=== PATIENT | female | born 1990 | race Caucasian/White ===

== ENCOUNTER 2016-10-24 15:09 | Emergency (ER) | payer OTHER ==
[~2016-10-24] VITALS: Ht 165.1 cm; Wt 58.0 kg
[2016-10-24 15:11] VITALS: Ht 165.1 cm; Wt 58.0 kg
[2016-10-24] MEDS ORDERED: HYDR-902 PO (16:14)
--- NOTE | 2016-10-24 16:17 | ERD ---
ER Documentation Chief Complaint Date/Time DATE: 10/24/16 TIME: 16:15 Chief Complaint 9/10 pelvic pain x today HPI This is a 26-year-old female who is here for pelvic pain. The patient took Plan B 2 weeks ago and she is currently having some pain on her day 1 of her menstrual cycle today. She complains of typical pain she usually has but is much worse with some pelvic cramping is been off-and-on with heavy bleeding which is typical for her. No vomiting no back pain no dysuria. She says her pain is much better now than it was this morning ROS All systems reviewed and are negative except as per history of present illness. Medications Home Meds Active Scripts Hydrocodone/Acetaminophen ([place] 10-325 Tablet) 1 Each Tablet, 1 TAB PO Q6H Y for PAIN, #20 TAB Prov:DAVIN FOX DO 10/24/16 Allergies Allergies: Coded Allergies: No Known Allergy (Unverified , 10/24/16) PMhx/Soc Medical and Surgical Hx: pt denies Medical Hx, pt denies Surgical Hx FmHx Family History: No coronary disease Physical Exam Vitals Vital Signs Date Time Temp Pulse Resp B/P Pulse Ox O2 Delivery O2 Flow Rate FiO2 10/24/16 15:11 97.8 82 16 128/76 99 Physical Exam Const: Well-developed, well-nourished Head: Atraumatic, normocephalic Eyes: Normal Conjunctiva, PERRLA, EOMI, normal sclera, no nystagmus ENT: Normal External Ears, Nose and Mouth, moist mucus membranes. Neck: Full range of motion. No meningismus, no lymphadenopathy. Resp: Clear to auscultation bilaterally, no wheezing, rhonchi, rales Cardio: Regular rate and rhythm, no murmurs, S1 S2 present Abd: Soft, diffuse mild tenderness in the pelvis, non distended. Normal bowel sounds, no guarding or rebound, no pulsitile abdominal masses or bruits Skin: No petechiae or rashes, no ecchymosis , no maculopapular rash Back: No midline or flank tenderness Ext: No cyanosis, or edema, FROM x 4, normal inspection, neurovascularly intact x 4 Neur: Awake and alert, STR 5/5 x 4, sensation intact x 4, no focal findings, cerebellum intact Psych: Normal Mood and Affect Procedures/MDM Patient is having some heavy bleeding and cramps due to taking Plan B earlier in the month. This is typically seen after taking such medication. Her pain is much better now and she is okay to go Departure Diagnosis: Primary Impression: Dysmenorrhea Condition: Stable Patient Instructions: Dysmenorrhea DAVIN FOX DO Oct 24, 2016 16:17
== END 2016-10-24 17:13 | disposition home or self-care (01) ==
LOC: FTE 15:09
DX: N94.6 Dysmenorrhea, unspecified (principal)
CPT/HCPCS: 99283